=== PATIENT | male | born 1970 | race Caucasian/White ===

== ENCOUNTER 2016-07-09 08:30 | Emergency (ER) | payer OTHER ==
[~2016-07-09] VITALS: Ht 170.2 cm; Wt 113.4 kg
[2016-07-09 08:35] VITALS: BP 148/92
--- NOTE | 2016-07-09 08:56 | PHYS DOC ---
Adult General Chief Complaint Chief Complaint: FINGER INJURY [facility] HPI Patient is a 45 year old male presents emergency Department today with complaint of a crush injury of laceration to his right fifth finger. Patient states this happened with a deck platform that he was working on causing a crush. He denies any previous fractures to his fifth finger. He denies any additional injuries or concerns at this time. He denies numbness/tingling. He reports that he has had a tetanus shot within the past 5 years. Review of Systems Review of Systems Constitutional: Denies fever or chills [] Eyes: Denies change in visual acuity, redness, or eye pain [] HENT: Denies nasal congestion or sore throat [] Respiratory: Denies cough or shortness of breath [] Cardiovascular: No additional information not addressed in HPI [] GI: Denies abdominal pain, nausea, vomiting, bloody stools or diarrhea [] : Denies dysuria or hematuria [] Musculoskeletal: Denies back pain or joint pain [] Integument: Denies rash or skin lesions [] Neurologic: Denies headache, focal weakness or sensory changes [] Endocrine: Denies polyuria or polydipsia [] Current Medications Current Medications Current Medications Medications (Trade) Dose Ordered Sig/Gricel Start Time Stop Time Status Last Admin Dose Admin Acetaminophen/ Hydrocodone Bitart (Lortab 5/325) 1 tab 1X ONCE 07/09/16 09:00 07/09/16 09:01 DC 07/09/16 09:23 1 TAB Lidocaine/Sodium Bicarbonate (Buffered Lidocaine 1%) 20 ml 1X ONCE 07/09/16 09:00 07/09/16 09:01 DC 07/09/16 09:23 20 ML Allergies Allergies Allergies Coded Allergies Type Severity Reaction Last Updated Verified No Known Drug Allergies 07/09/16 No Physical Exam Physical Exam Constitutional: Well developed, well nourished, mild distress, non-toxic appearance. HENT: Normocephalic, atraumatic, bilateral external ears normal, oropharynx moist, no oral exudates, nose normal. [] Eyes: PERRLA, EOMI, conjunctiva normal, no discharge. [] Neck: Normal range of motion, no tenderness, supple, no stridor. [] Cardiovascular:Heart rate regular rhythm, no murmur [] Lungs & Thorax: Bilateral breath sounds clear to auscultation [] Abdomen: Bowel sounds normal, soft, no tenderness, no masses, no pulsatile masses. [] Skin: Warm, dry, no erythema, no rash. [] Back: No tenderness, no CVA tenderness. [] Extremities: Right fifth finger with mild swelling to the proximal and middle phalanx. There is a 2.5 cm laceration to the palmar aspect of the proximal phalanx that extends into the subcutaneous tissue. Flexion and extension is intact at both the PIPJ and DIPJ. Sensation is intact in the distal phalanx. Capillary refill is less than 2 seconds. Neurologic: Alert and oriented X 3, normal motor function, normal sensory function, no focal deficits noted. [] Psychologic: Affect normal, judgement normal, mood normal. [] Current Patient Data Vital Signs Vital Signs Date Time Temp Pulse Resp B/P Pulse Ox O2 Delivery O2 Flow Rate FiO2 07/09/16 08:35 97.9 87 18 98 Room Air 97.9 EKG EKG [] Radiology/Procedures Radiology/Procedures [facility] [address] [place], [place] [id number] IMAGING REPORT Signed PATIENT: COLIN GOETZ ACCOUNT: [id number] : 1970 LOCATION: ER AGE: 45 SEX: M EXAM STATUS: PRE ER ORD. PHYSICIAN: HENRIQUE TREVINO REASON: crush injury to 5th finger this morning building a deck PROCEDURE: FINGER(S) RIGHT Indication crush injury to small finger. An AP view of the right hand was obtained as well as additional oblique and lateral imaging targeted to the small finger. There is slight deformity involving the fifth metacarpal neck having a chronic appearance. An acute bony finding involving the small finger is not seen IMPRESSION: No acute bony finding DICTATED and SIGNED BY: CHAO HOLCOMB MD DATE: 07/09/16904 CC: HENRIQUE TREVINO ~ Procedure note: 2.5 cm laceration to the palmar aspect of the proximal phalanx of the right fifth finger was anesthetized with buffered 1% lidocaine. Wound was cleansed with Betadine solution and rinsed with copious amounts of saline. Wound was explored for foreign bodies. No foreign bodies were found. Wound is explored to the Of a laceration. It did not extend into the the flexor tendons. Again, flexor tendon function is preserved at both the PIPJ and DIPJ. Wound margins were approximated with 5-0 nylon in a single-layer closure of a simple interrupted fashion for total of 5 stitches. Finger was dressed with gauze and bandaged with Coban. Capillary refills 2 seconds post-bandage application. Patient tolerated the procedure well. Course & Med Decision Making Course & Med Decision Making Pertinent Labs and Imaging studies reviewed. (See chart for details) [] Dragon Disclaimer Dragon Disclaimer This electronic medical record was generated, in whole or in part, using a voice recognition dictation system. Departure Departure Impression: Primary Impression: Crush injury Additional Impression: Laceration Disposition: 01 HOME, SELF-CARE Condition: IMPROVED Patient Instructions: Crush Injury, Fingers or Toes, Sorb-on-Usts, Laceration Care, Adult, [id number] Additional Instructions: 1. X-rays today show no broken bones. 2. Sutures need to be removed in 7-10 days. 3. Review the discharge instructions provided for self-care and reasons to return to the emergency department. 4. Discuss follow-up with occupational health provider with your employer to ensure proper wound management and further care of your finger. Scripts Cephalexin 500 Mg Capsule1 Cap PO TID #21 CAP Prov:HENRIQUE TREVINO 07/09/16 Hydrocodone/Apap 5-325 ([place] 5-325 Tablet)1 Each Tablet1 Tab PO PRN Q6HRS PRN PAIN #10 TAB Prov:HENRIQUE TREVINO 07/09/16 Problem Qualifiers HENRIQUE TREVINO July 09, 2016 08:56
[2016-07-09] MEDS ORDERED: HYDROcodone/APAP 5/325MG 1 TAB TABLET PO ONE (09:00)
[2016-07-09] MEDS ORDERED: LIDOCAINE 1% / SOD BICARB 8.4% 20 ML VIAL. IJ ONE (09:00)
--- NOTE | 2016-07-09 09:10 | RAD ---
Indication crush injury to small finger. An AP view of the right hand was obtained as well as additional oblique and lateral imaging targeted to the small finger. There is slight deformity involving the fifth metacarpal neck having a chronic appearance. An acute bony finding involving the small finger is not seen IMPRESSION: No acute bony finding
[2016-07-09] MEDS ORDERED: HYDR-971 PO (09:27)
[2016-07-09] MEDS ORDERED: CEPH500C PO (09:27)
== END 2016-07-09 10:04 | disposition home or self-care (01) ==
LOC: ER 08:30
DX: S61.216A Laceration without foreign body of right little finger without damage to nail, initial encounter (principal); W23.0XXA Caught, crushed, jammed, or pinched between moving objects, initial encounter; Y93.89 Activity, other specified; Y92.89 Other specified places as the place of occurrence of the external cause; Y99.8 Other external cause status
CPT/HCPCS: 12001; 73140; 99284-25